=== PATIENT | female | born 1950 | race Caucasian/White ===

== ENCOUNTER 2025-05-15 19:57 | Emergency (ER) | payer MEDICARE, BC ==
[2025-05-15 20:32] VITALS: BP 145/77; PULSE 89
[2025-05-15] MEDS: Ondansetron 4 MG Tab.DIS PO ONE (21:15)
== END 2025-05-15 21:19 | disposition home or self-care (01) ==
LOC: FB.ED 19:57
DX: J10.1 Influenza due to other identified influenza virus with other respiratory manifestations (principal); I10 Essential (primary) hypertension; K21.9 Gastro-esophageal reflux disease without esophagitis; Z88.5 Allergy status to narcotic agent; Z88.1 Allergy status to other antibiotic agents; Z88.2 Allergy status to sulfonamides; Z88.0 Allergy status to penicillin; Z79.899 Other long term (current) drug therapy; Z79.51 Long term (current) use of inhaled steroids; Z79.82 Long term (current) use of aspirin; Z90.89 Acquired absence of other organs
CPT/HCPCS: 87428; 87651; 99283; 99284; Q0162